=== PATIENT | female | born 1945 | race Caucasian/White ===

== ENCOUNTER 2021-08-05 11:00 | Outpatient (RCR) | payer MEDICARE, OTHER, SELFPAY | END 2021-08-05 12:02 | disposition home or self-care (01) | LOC: HO.PTCHIC 11:00 | PROVIDERS: PCP Family Medicine; Visit Provider Family Medicine | DX: R26.81 Unsteadiness on feet (principal) | CPT/HCPCS: 97110; 97112; 97150; 97161; 97530 ==

== ENCOUNTER → 2022-03-01 07:56 | Outpatient (BNVA) | payer MEDICARE, OTHER, SELFPAY | PROVIDERS: PCP Family Medicine; Visit Provider Psychiatry & Neurology Neurology | DX: G20 Parkinson's disease (principal); F32.A Depression, unspecified | CPT/HCPCS: 99202 ==

== ENCOUNTER → 2022-06-07 11:22 | Outpatient (BNVA) | payer MEDICARE, OTHER, SELFPAY | PROVIDERS: PCP Family Medicine; Visit Provider Psychiatry & Neurology Neurology | DX: G20 Parkinson's disease (principal); F32.A Depression, unspecified | CPT/HCPCS: 99212 ==

== ENCOUNTER → 2022-10-09 10:22 | Outpatient (BNVA) | payer MEDICARE, OTHER, SELFPAY | PROVIDERS: PCP Family Medicine; Visit Provider Psychiatry & Neurology Neurology | DX: G20 Parkinson's disease (principal); F32.A Depression, unspecified | CPT/HCPCS: 99212 ==

== ENCOUNTER 2023-04-11 10:28 | Outpatient (AMB) | payer MEDICARE, OTHER, SELFPAY ==
--- NOTE | 2023-04-11 10:41 | MHC.OFFVIS ---
Intake Vital Signs 04/11/23 10:47 Weight 156 lb 2 oz BP 130/76 Blood Pressure Location Lt brachial Position Sitting Pulse 58 Pulse Source Pulse Oximeter Pulse Oximetry (%) 97 Oxygen Delivery Method Room Air Intake Visit Reasons: 6m follow up Tremors-Confirmed Intake Note: F/U tremors Business Support Assistant Required: No Allergies No Known Allergies Allergy (Verified 04/11/23 10:42) HPI HPI Comments History of Present Illness Details 77 y/o right handed female comes for follow up of Parkinson's disease. Pt reports she feels better, less tremor, no off time with Sinemet TID. She takes Sinemet at 7:30 am, after lunch 12-2 pm and after supper, 9 pm. She has trouble with fine motor skills, but can cook and eat without problem. Pt reports she still has some drooling, but speech therapy helped to reduce the drooling and improve her memory. She had casimiro knee replacements bilaterally (Dec and Feb 2022). Constipation is better- with dulcolax and metamuci and probiotics . REM sleep events are less with melatonin 10 mg. Her mood is stable. She is seeing a therapist now which is helpinga and goes to [address] in [place] for exercise. No falls reported. She may have some knee and sciatica pain is the morning, using heating pad can relieve the pain. Denies dizziness, hallucinations, vertigo or double vision. [facility] Medical History Arthritis Depression HTN (hypertension) Hyperlipidemia Hypothyroidism Parkinson's disease Uterine cancer Surgical History Hx of carpal tunnel repair Hx of hysterectomy Hx of knee surgery Knee joint replacement status Family History Father Heart attack Mother Stroke Family/Other No problems noted. Social History (Updated 04/11/23 @ 10:46 by Lela Dalal CMA) Alcohol intake: current Alcohol intake frequency: does not drink Alcohol type: wine Patient Tobacco Use Status: Former Tobacco user Quit Date: over 40 yrs ago Substance Use Type: Marijuana Review of Systems Const All systems reviewed & are unremarkable except as noted in HPI and below Physical Exam Vital Signs: Last Vital Signs Pulse 58 04/11/23 10:47 BP 130/76 11/15/23 10:47 Pulse Ox 97 04/11/23 10:47 Oxygen Delivery Method Room Air 04/11/23 10:47 Const General: cooperative, healthy appearing, comfortable and anxious Nutritional Appearance: overweight Orientation/consciousness: patient oriented x3 HEENT Head: Yes normal to inspection Neck Other: good range of motion Neuro Other: UPDRS - 3 Speech 1-Slight loss of expression,diction or volume Facial expression 2-Slight but definite abnormal diminution of facial expression Rest Tremors( head, Upper, lower ) 3-Moderate in amplitude and present most of the time- left UE Action and Postural tremors 0-none Rigidity 1-Slight or detectable only when activated by mirror movements Finger Taps 1-Mild slowing and or reduction in amplitude Hand movements 1-mild slowing and or reduction in amplitude Rapid Alternating Movements of Hands 1-Mild slowing and or reduction in amplitude Leg agility 2-moderately impaired.Definite and early fatiguing , may have occasional arrest in movement. Arising from a chair 2-Pushes self up from arms of seat Posture 0-normal Gait 1-walks slowly,may shuffle with short steps, but no festination or propulsion Postural stability 0-normal Body bradykinesia and hypokinesia 1-minimal slowness,giving movement a deliberate character,could be normal for some persons.Possible reduced amplitude General: patient oriented x3 Motor exam (neuro): 5/5 motor strength present throughout and Normal motor muscle tone present throughout Assessment & Plan Assessment & Plan (1) Parkinson's disease: Code(s): G20 - Parkinson's disease (2) Depression: Code(s): F32.A - Depression, unspecified Plan Continue carbidopa/levodopa 25/100 TID. Continue psychotherapy and speech therapy. PT with Tony chavez, and daily exercise. Continue to take melatonin 10 mg to manage REM behavior. Coding Level of Care Code Est Pt Level 3 (90114) Diagnoses Parkinson's disease G20 Depression F32.A
[2023-04-11 10:47] VITALS: BP 130/76; PULSE 58; O2SAT 97
== END 2023-04-11 11:17 | disposition home or self-care (01) ==
PROVIDERS: Visit Provider Nurse Practitioner Family
DX: G20.A2 Parkinson's disease without dyskinesia, with fluctuations (principal); F32.A Depression, unspecified
CPT/HCPCS: 99213

== ENCOUNTER → 2023-04-11 10:28 | Outpatient (BNVA) | payer MEDICARE, OTHER, SELFPAY | PROVIDERS: Visit Provider Nurse Practitioner Family | DX: G20.A1 Parkinson's disease without dyskinesia, without mention of fluctuations (principal); F32.A Depression, unspecified | CPT/HCPCS: 99212 ==

== ENCOUNTER 2024-02-25 10:54 | Outpatient (AMB) | payer MEDICARE, OTHER, SELFPAY ==
--- NOTE | 2024-02-25 11:04 | A.OFFVIS_ITS ---
Vital Signs 02/25/24 11:05 Height 5 ft 3 in Weight 157 lb 2 oz BMI 27.8 BP 138/70 Blood Pressure Location Rt brachial Position Sitting Respiration 16 Pulse 71 Pulse Source Pulse Oximeter Pulse Oximetry (%) 97 Oxygen Delivery Method Room Air Intake Visit Reasons: 6 mnts f/u for Tremors Intake Note: Pt presents for 10 month follow up for tremors. Allergies No Known Allergies Allergy (Verified 02/25/24 11:04) HPI Comments Details: 78 y/o right handed female comes for follow up of Parkinson's disease. she has noticed mild worsening.But is concerned about her sleep behavior.she is on melatonin - 25mg qhs . she has hurt her once and has had a fall related to her RBD. she has bed rail now. She takes Sinemet at 7:30 am, after lunch 12-2 pm and after supper, 9 pm.she has tremors in her left side. she is independent in all her ADLS. She has trouble with fine motor skills, but can cook and eat without problem. she feels she is slower. She has drooling and has done LSVT for her speech and is continuing to follow up with the speech therapist she also did [facility] program and continues to do the exercises.she also does parkinsons program at [facility] She had casimiro knee replacements bilaterally (Dec and Feb 2022). Constipation is worse- with dulcolax and metamucil and probiotics . Mood has improved. She is seeing a therapist. No falls reported. Denies dizziness, hallucinations, vertigo or double vision. [facility] Medical History (Updated 02/25/24 @ 11:31 by Jada Thompson MD) RBD (REM behavioral disorder) Parkinson's disease without dyskinesia, without mention of fluctuations Parkinson's disease Arthritis Depression Hypothyroidism Hyperlipidemia HTN (hypertension) Uterine cancer Surgical History Knee joint replacement status Hx of knee surgery Hx of hysterectomy Hx of carpal tunnel repair Family History Father Heart attack Mother Stroke Family/Other No problems noted. Social History Alcohol intake: current Alcohol intake frequency: does not drink Alcohol type: wine Patient Tobacco Use Status: Former Tobacco user Substance Use Type: Marijuana Physical Exam Vital Signs: Last Vital Signs Pulse 71 02/25/24 11:05 Resp 16 02/25/24 11:05 BP 138/70 02/25/24 11:05 Pulse Ox 97 02/25/24 11:05 Oxygen Delivery Method Room Air 02/25/24 11:05 BMI result Body Mass Index 27.8 Const General: cooperative, healthy appearing, comfortable and anxious Nutritional Appearance: overweight Orientation/consciousness: patient oriented x3 HEENT Head: Yes normal to inspection Neck Other: good range of motion Neuro Other: UPDRS - 3 Speech 1-Slight loss of expression,diction or volume Facial expression 2-Slight but definite abnormal diminution of facial expression Rest Tremors( head, Upper, lower ) 3-Moderate in amplitude and present most of the time- left UE Action and Postural tremors 0-none Rigidity 1-Slight or detectable only when activated by mirror movements Finger Taps 1-Mild slowing and or reduction in amplitude Hand movements 1-mild slowing and or reduction in amplitude Rapid Alternating Movements of Hands 1-Mild slowing and or reduction in amplitude Leg agility 2-moderately impaired.Definite and early fatiguing , may have occasional arrest in movement. Arising from a chair 2-Pushes self up from arms of seat Posture 0-normal Gait 1-walks slowly,may shuffle with short steps, but no festination or propulsion Postural stability 0-normal Body bradykinesia and hypokinesia 1-minimal slowness,giving movement a deliberate character,could be normal for some persons.Possible reduced amplitude General: patient oriented x3 Motor exam (neuro): 5/5 motor strength present throughout and Normal motor muscle tone present throughout Assessment & Plan Assessment & Plan (1) Parkinson's disease without dyskinesia, without mention of fluctuations: Code(s): G20.A1 - Parkinson's disease without dyskinesia, without mention of fluctuations Category: Medical (2) RBD (REM behavioral disorder): Code(s): G47.52 - REM sleep behavior disorder Category: Medical (3) Depression: Code(s): F32.A - Depression, unspecified Category: Medical Qualifiers: Depression Type: unspecified Qualified Code(s): F32.A - Depression, unspecified Plan Continue carbidopa/levodopa 25/100 TID. Continue psychotherapy and speech therapy. PT with Tony chavez, and daily exercise. Continue to take melatonin 20 mg to manage REM behavior. I will trial her on clonazepam 0.125mg qhs Medications: New clonazepam administer 30 minutes before bedtime 0.125 mg PO BEDTIME 30 tabs 0RF Coding Level of Care Code Est Pt Level 4 (73758) Complex EM visit Add On G2211 Diagnoses Parkinson's disease without dyskinesia, without mention of fluctuations G20.A1 RBD (REM behavioral disorder) G47.52 Depression, unspecified depression type F32.A Depression Type: unspecified
[2024-02-25 11:05] VITALS: BP 138/70; PULSE 71; RESP 16; O2SAT 97; BMI 27.8
== END 2024-02-25 11:34 | disposition home or self-care (01) ==
PROVIDERS: PCP Family Medicine; Visit Provider Psychiatry & Neurology Neurology
DX: G20.A1 Parkinson's disease without dyskinesia, without mention of fluctuations (principal); G47.52 REM sleep behavior disorder; F32.A Depression, unspecified
CPT/HCPCS: 99214; G2211

== ENCOUNTER → 2024-02-25 10:54 | Outpatient (BNVA) | payer MEDICARE, OTHER, SELFPAY | PROVIDERS: PCP Family Medicine; Visit Provider Psychiatry & Neurology Neurology | DX: G20.A1 Parkinson's disease without dyskinesia, without mention of fluctuations (principal); G47.52 REM sleep behavior disorder; F32.A Depression, unspecified | CPT/HCPCS: 99212 ==

== ENCOUNTER 2024-11-20 10:52 | Outpatient (AMB) | payer MEDICARE, OTHER, SELFPAY ==
--- NOTE | 2024-11-20 10:53 | A.OFFVIS_ITS ---
Vital Signs 11/20/24 10:54 Height 5 ft 3 in Weight 156 lb BMI 27.6 BP 140/82 H Blood Pressure Location Rt brachial Position Sitting Intake Visit Reasons: 6 mnts f/u for Tremors Intake Note: Patient following up med trial clonazepam. Saw PT for speech on 06/29/2024 Allergies No Known Allergies Allergy (Verified 11/20/24 10:57) Medication List - Last Reconciled 11/20/24 by Jada Thompson MD carbidopa-levodopa 25-100 mg 1 tab PO TID 90 days cholecalciferol (vitamin D3) 25 mcg PO DAILY clonazepam 0.125 mg PO BEDTIME coQ10 (ubiquinol) (Qunol Xu CoQ10) 300 mg PO DAILY cyanocobalamin (vitamin B-12) (Vitamin B-12) 1,000 mcg PO DAILY docusate sodium 50 mg PO BID levothyroxine (Synthroid) 88 mcg PO DAILY magnesium carb,citrate,oxide (Magnesium Complex) mg PO melatonin 5 mg PO DAILY mometasone 0.1% 0 appl topical pantoprazole 40 mg PO BID psyllium husk (Metamucil) 1 tbsp PO DAILY sertraline 100 mg PO vitamin E units PO HPI Comments Details: 79 y/o right handed female comes for follow up of Parkinson's disease. she is stable no increase in tremors. she is on melatonin 15 mg qhs is helping RBD She takes Sinemet at 7:30 am, after lunch 12-2 pm and after supper, 9 pm.she has tremors in her left side. she is independent in all her ADLS. She has trouble with fine motor skills, but can cook and eat without problem. she feels she is slower. She has drooling and has done LSVT for her speech and is continuing to follow up with the speech therapist .she also does parkinsons program at [facility] She had casimiro knee replacements bilaterally (Dec and Feb 2022). Constipation is worse- with dulcolax and metamucil and probiotics . Mood is stable - worries about her parkinsons She is seeing a therapist. No falls reported. Denies hallucinations, vertigo or double vision. she has some dizziness when she changes position- getting up from the floor. [facility] Medical History RBD (REM behavioral disorder) Parkinson's disease without dyskinesia, without mention of fluctuations Parkinson's disease Arthritis Depression Hypothyroidism Hyperlipidemia HTN (hypertension) Uterine cancer Surgical History Knee joint replacement status Hx of knee surgery Hx of hysterectomy Hx of carpal tunnel repair Family History Father Heart attack Mother Stroke Family/Other No problems noted. Social History Alcohol intake: current Alcohol intake frequency: does not drink Alcohol type: wine Patient Tobacco Use Status: Former Tobacco user Substance Use Type: Marijuana Physical Exam Vital Signs: Last Vital Signs BP 140/82 H 11/20/24 10:54 BMI result Body Mass Index 27.6 Const General: cooperative, healthy appearing, comfortable and anxious Nutritional Appearance: overweight Orientation/consciousness: patient oriented x3 HEENT Head: Yes normal to inspection Neck Other: good range of motion Neuro Other: UPDRS - 3 Speech 1-Slight loss of expression,diction or volume Facial expression 2-Slight but definite abnormal diminution of facial expression Rest Tremors( head, Upper, lower ) 3-Moderate in amplitude and present most of the time- left UE Action and Postural tremors 0-none Rigidity 1-Slight or detectable only when activated by mirror movements Finger Taps 1-Mild slowing and or reduction in amplitude Hand movements 1-mild slowing and or reduction in amplitude Rapid Alternating Movements of Hands 1-Mild slowing and or reduction in amplitude Leg agility 2-moderately impaired.Definite and early fatiguing , may have occasional arrest in movement. Arising from a chair 2-Pushes self up from arms of seat Posture 0-normal Gait 1-walks slowly,may shuffle with short steps, but no festination or propulsion Postural stability 0-normal Body bradykinesia and hypokinesia 1-minimal slowness,giving movement a deliberate character,could be normal for some persons.Possible reduced amplitude General: patient oriented x3 Motor exam (neuro): 5/5 motor strength present throughout and Normal motor muscle tone present throughout Assessment & Plan Assessment & Plan (1) Parkinson's disease without dyskinesia, without mention of fluctuations: Code(s): G20.A1 - Parkinson's disease without dyskinesia, without mention of fluctuations Category: Medical (2) RBD (REM behavioral disorder): Code(s): G47.52 - REM sleep behavior disorder Category: Medical (3) Depression: Code(s): F32.A - Depression, unspecified Category: Medical Qualifiers: Depression Type: unspecified Qualified Code(s): F32.A - Depression, unspecified Plan Continue carbidopa/levodopa 25/100 TID. Continue psychotherapy and speech therapy. PT for leg weakness daily exercise. Continue to take melatonin 15 mg to manage REM behavior. clonazepam 0.125mg qhs Orders: Orders PT Evaluation and Treatment Today R29.898 - Other symptoms and signs involving the musculoskeletal system Coding Level of Care Code Est Pt Level 4 (23266) Complex EM visit Add On G2211 Diagnoses Parkinson's disease without dyskinesia, without mention of fluctuations G20.A1 RBD (REM behavioral disorder) G47.52 Depression, unspecified depression type F32.A Depression Type: unspecified
[2024-11-20 10:54] VITALS: BP 140/82; BMI 27.6
--- OUTSIDE RECORDS SUMMARY | 2024-11-20 12:53 | XMS_ITS | Encounter Summary ---
Author Organization [facility] Address [address] [place] [id number] Care Team Providers Care Security Monitor Name Role Phone Alexa Grullon MD Primary Care Provider [phone] Encounter Details Date Type Department Care Team ([facility] st Contact Info) Description 10/13/2021 Scanned Document [facility] Neurology [address] [place] [address] Michael Tomas APRN [facility] [address] [place] [address] Social History Tobacco Use Types Packs/Day Years Used Date Smoking Tobacco: Former Smokeless Tobacco: Never Comments:quit 1975 Alcohol Use Standard Drinks/Week Comments Yes 7 (1 standard drink = 0.6 oz pur e alcohol) social Comments No Sex and Gender Information Value Date Recorded Sex Assigned at Not on file Legal Sex Female 2:52 PM EST Gender Identity Not on file Sexual Orientation Not on file COVID-19 Exposure Response Date Recorded In the last 10 days, have yo u been in contact with someone who was confirmed or suspected to have Coronavirus/COVID-19? No / Unsure 10/12/2021 11:09 AM EDT documented as of this encounter Plan of Treatment Not on file documented as of this encounter Visit Diagnoses Not on filedocumented in this encounter Care Teams Security Monitor Relationship Specialty Start Date End Date [facility] [address] [id number] PCP - General Family Medicine 06/23/21 documented as of this encounter
== END 2024-11-20 11:36 | disposition home or self-care (01) ==
LOC: HO.HSMS 10:53
PROVIDERS: PCP Family Medicine; Visit Provider Psychiatry & Neurology Neurology
DX: G20.A1 Parkinson's disease without dyskinesia, without mention of fluctuations (principal); G47.52 REM sleep behavior disorder; F32.A Depression, unspecified
CPT/HCPCS: 99214; G2211

== ENCOUNTER → 2024-11-20 10:52 | Outpatient (BNVA) | payer MEDICARE, OTHER, SELFPAY | PROVIDERS: PCP Family Medicine; Visit Provider Psychiatry & Neurology Neurology | DX: G20.A1 Parkinson's disease without dyskinesia, without mention of fluctuations (principal); G47.52 REM sleep behavior disorder; F32.A Depression, unspecified | CPT/HCPCS: 99212 ==

== ENCOUNTER 2025-05-01 12:53 | Outpatient (RCR) | payer MEDICARE, OTHER, SELFPAY ==
--- NOTE | 2025-01-13 12:29 | MHC.PT.EP ---
[facility] [place] Office [place] Office [place] Office [address] Felix Piña [address] [phone] F: [phone] F: [phone] F: [phone] F: [phone] Physical Therapy Plan of Care Date of Evaluation: 01/13/25 Date of Surgery: Diagnosis: R29.898 Pther symptoms and signs involving the musculoskeletal program, PWR, waeakness of both lower extremities, Parkinson disease without dyskinesia signed by Dr. 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 Reed for treatment of PWR program, date of referral 11/20/24. Pt was diagnosed of Parkinson disease in 08/16. Pt presents with L UE tremor, c/o bilateral anterior knee pain and muscle stiffness. Pt currently active in [facility] multiple programs including Parkinson M/W/sometimes supplemental days F specific classes, cycling, and dance/anusha-chi balance. Due to her active involvement in these programs she is electing to attend PT once a week to supplement. She exhibits impaired bed mobility, has difficulty with proximal hip strength/movement bridging, scooting, and SL. She reports a history of falling OOB many years ago and uses a bed rail. She lives in a ranch style home with [place], with few ALESHA with rail, full flight of steep stairs to basement. She completes all ADLS/IADLS I with increased time. She exhibits excellent rehab potential for PT. She was noted to exhibit some word finding difficulty/forgetfulness/eagerness/anxiety, expresses currently has a mental health clinician with whom she sees on a regular basis. Frequency and Duration: The patient will be seen 1x/week x 6-8 weeks Short Term Goals: 1. Bed mobility MOD I. (IR: fair bridge poor scoot L>R, fair rolling L>R. 2. Pt will demonstrate improvement in knee pain by 25% with a flexibility routine. 3. Scotting MOD I. (IR: poor ability left vs R). 4. Roll to L side with good body mechanics, MOD I. 5. Initiate PWR program with good self-care. Snf Goals: 1. Ambulate 20 minutes with good dynamic balance and self care management. 2. Improve 5 reps sit<>stand time and quality. (IR able to perform without UE with good eccentric control. 3. Demonstrate good floor recovery skillset and safety. (IR: did not attempt first visit but pt notes difficulty, fear of getting down). 4. Hip abduction strength 5/5. (IR 3+/5). Treatment Plan: Modalities to reduce pain, spasms and effusion. Manual therapy to restore motion and function. Therapeutic exercise to improve strength and flexibility. Neuromuscular re-education for posture and balance. Therapeutic activities to return to functional activities of daily living. Electronically signed by: Crissy Romero PT, DPT Please sign and return to therapist. Thank you for your referral.
== END 2025-05-19 13:58 | disposition home or self-care (01) ==
LOC: HO.PTS 12:53
PROVIDERS: PCP Family Medicine; Visit Provider Psychiatry & Neurology Neurology
DX: M62.562 Muscle wasting and atrophy, not elsewhere classified, left lower leg (principal); M62.561 Muscle wasting and atrophy, not elsewhere classified, right lower leg; G20.A1 Parkinson's disease without dyskinesia, without mention of fluctuations
CPT/HCPCS: 97110; 97112; 97162